=== PATIENT | female | born 1985 | race Caucasian/White ===

== ENCOUNTER 2025-02-24 16:31 | Emergency (ER) | payer OTHER, SELFPAY ==
[2025-02-24 16:31] VITALS: BP 139/98; PULSE 80; RESP 17; TEMP 36.8; O2SAT 97; BMI 37.4
--- NOTE | 2025-02-24 16:35 | ECG_ITS ---
[facility] Test Date: 2025-02-24 Pat Name: Carol Urban Department: Room: Gender: Female [employer]: : 1985 Requested By: Carlene Morocho Order Number: [id number] Masood MD: Dixon Torres M.D. Measurements Intervals [place] Rate: 80 P: 51 FL: 213 QRS: 7 QRSD: 103 T: 55 QT: 382 QTc: 441 Interpretive Statements SINUS RHYTHM WITH FIRST DEGREE AV BLOCK No previous ECG available for comparison Electronically Signed On 02-24-2025 17:53:31 NEGATIVE TURNER by Dixon Torres M.D. [id number]
--- NOTE | 2025-02-24 16:53 | XRR_ITS ---
PROCEDURE INFORMATION: Exam: XR Chest Exam date and time: 02/24/2025 4:54 PM Age: 39 years old Clinical indication: Cough; Heart monitor; Additional info: Chest pain TECHNIQUE: Imaging protocol: Radiologic exam of the chest. Views: 1 view. COMPARISON: No relevant prior studies available. FINDINGS: Tubes, catheters and devices: Metallic devices project over the left upper thorax. Lungs: Unremarkable. No consolidation. Pleural spaces: Unremarkable. No pleural effusion. No pneumothorax. Heart/Mediastinum: Cardiac silhouette is enlarged. Bones/joints: Unremarkable. XR/XR chest 1V portable [id number] IMPRESSION: No acute cardiopulmonary findings.
--- NOTE | 2025-02-24 16:53 | ED_ITS ---
HPI - Arrhythmia/Palpitations 2 General: Chief Complaint: Arrhythmia/Palpitations Stated Complaint: weakness - low hr Time Seen by Provider: 02/24/25 16:32 Source: patient Mode of arrival: ambulatory Limitations: no limitations History of Present Illness: Patient is a 39-year-old female presents to ED today with a complaint of episodes of bradycardia. Patient states she first began noticing earlier while she would be asleep. She wears some type of aura ring that alerts her to abnormal heart rates/sleep patterns. She had began noticing that her heart rates were in the mid 30s when she would sleep. She has since reached out to her primary care provider who ordered her Holter monitor and she is currently wearing this. Patient has complaints of fatigue. She is having insomnia and has been prescribed medications such as trazodone and hydroxyzine to help with her sleep. She states she has a difficult time falling asleep. She does admit to awakening several times for frequent urination. She has tried decreasing fluids prior to bedtime. No caffeine past noon. These have not helped with her symptoms. She states she overall feels absolutely exhausted all the time. She will occasionally notice some intermittent palpitations in her chest. She states normally the bradycardia is happening at night but she has started noticing it during the day-like this morning for example. She denies lightheadedness, dizziness, passing out episodes. No shortness of breath. Heart rate is sinus rhythm with a rate of 80 upon arrival. Denies possibility of perimenopausal symptoms as she still has regular menstrual cycles. States she does have known thyroid disease and is on medication for this. Known history of mitral valve prolapse. MD complaint: palpitations Onset (ago): month(s) Duration: intermittent Severity: moderate Associated symptoms: Deny nausea, pre-syncope, syncope or vomiting Related Data Home Medications ?Medication ?Instructions ?Recorded ?Confirmed aspirin 325 mg tablet (Abel 325 mg PO DAILY 02/24/25 02/24/25 Aspirin) levothyroxine 50 mcg tablet 50 mcg PO DAILY 02/24/25 1 04/26/24 liothyronine 5 mcg tablet 5 mcg PO QAM 02/24/25 omega-3 fatty acids-fish oil 684 1 cap PO DAILY 02/24/25 mg-1,200 mg capsule,delayed release vitamin D3 125 mcg (5,000 1 cap PO DAILY 02/24/2501/30 unit)-vitamin K2 100 mcg capsule Allergies Allergy/AdvReac Type Severity Reaction Status Date / Time No Known Allergies Allergy Verified 02/24/25 16:34 Review of Systems 2 Const: Reports: change in weight, fatigue and change in sleep pattern; Denies: fever(s), chills, body aches or malaise Eyes: Denies: change in vision, blurry vision or photophobia Card: Reports: palpitations; Denies: chest pain, irregular heart rhythm, edema, swelling of feet/ankles, lightheadedness, syncope, pre-syncope, dyspnea on exertion, orthopnea, leg pain with exertion or acrocyanosis Resp: Denies: dyspnea, productive cough, non-productive cough, wheezing, pain on inspiration or chest congestion GI: Denies: abdominal pain, nausea, vomiting, heartburn or diarrhea : Reports: urinary frequency; Denies: flank pain, difficulty voiding, dysuria, urinary urgency or urinary hesitancy Musc: Denies: neck pain, back pain, extremity pain, extremity swelling or joint pain Skin/Breast: Denies: rash Neuro: Denies: headache(s), numbness in extremities, weakness in extremities, sensory changes or dizziness Physical Exam 2 Const: COMMON NORMALS: no acute distress, patient oriented x3, no limitations, alert and well nourished GENERAL APPEARANCE: cooperative NUTRITIONAL APPEARANCE: obese (BMI 37.4) ORIENTATION/CONSCIOUSNESS: Yes awake, Yes oriented to person, Yes oriented to place and Yes oriented to time HENMT: COMMON NORMALS: normocephalic and atraumatic HEAD & SCALP: normal to inspection, normocephalic and atraumatic FACE & SINUS: normal facial exam Eye: COMMON NORMALS: no scleral icterus Neck/C-Spine: COMMON NORMALS: full ROM, no lymphadenopathy, supple and no meningeal signs Chest: COMMONS NORMALS: normal inspection of the chest Resp: COMMON NORMALS: normal respiratory effort and clear to auscultation bilaterally AUSCULTATION: clear to auscultation bilaterally Cardio: COMMON NORMALS: regular rate and regular rhythm RATE: regular rate RHYTHM: regular rhythm GI: COMMON NORMALS: Normal to inspection, nondistended, normoactive bowel sounds present, Soft to palpation, non-tender, No hepatosplenomegaly present and no masses PALPATION: Yes Soft to palpation and Yes No hepatosplenomegaly present : COMMON NORMALS: Yes no CVA tenderness BLADDER/KIDNEY EXAM: Yes no CVA tenderness Back/Pelvis: COMMON NORMALS: no CVA tenderness and thoracic and lumbar spine normal to inspection Extremity: COMMON NORMALS: normal to inspection, capillary refill normal, no clubbing, cyanosis or edema, no calf tenderness and no pedal edema GENERAL: Y es normal exam except as noted Neuro: CRYSTAL COMA SCALE: document GCS findings Delta coma scale eye opening: Spontaneous Delta coma scale verbal response: Orientated Crystal coma scale motor response: Obey commands Cyrstal coma scale total score: 15 COMMON NORMALS: patient oriented x3, moves all extremities, no focal motor deficits, no sensory deficits noted and gait normal SENSORIUM/ORIENTATION: Yes alert, Yes oriented to person, Yes oriented to place and Yes oriented to time MENINGEAL SIGNS: Yes no meningeal signs Skin: COMMON NORMALS: no rashes or lesions noted GENERAL SKIN EXAM: no rashes or lesions noted Course 2 Vital Signs: Vital signs: Vital Signs Temperature 98.2 F 02/24/25 16:31 Pulse Rate 86 02/24/25 18:13 Respiratory Rate 17 02/24/25 16:31 Blood Pressure 126/87 02/24/25 18:13 Pulse Oximetry 99 02/24/25 18:13 Oxygen Delivery Me thod Room Air 02/24/25 16:31 MDM - Arrhythmia/Palpitations Medical Decision Making Patient clinically appears in no acute distress. She has not had any episodes of bradycardia while here. She has been noted on the monitor a few times to have runs of ventricular bigeminy. Question whether her aura watch is getting an accurate reading when it is telling her she is having bradycardia or if it is just misinterpreting rhythm. Ultimately she is wearing a Holter monitor (2 week monitor) which should give PCP useful information to determine course/plan. From an emergency standpoint she can go-return to ED precautions discussed. Medical Records I reviewed the patient's medical records. Lab Data I reviewed the patient's lab results. 02/24/25 15:55 02/24/25 15:55 Radiology Impressions Chest X-Ray 02/24/25 16:53 IMPRESSION: No acute cardiopulmonary findings. Laboratory Results WBC 7.48 10^3/uL (3.29-11.43) 11/27/25 15:55 RBC 5.01 10^6/uL (3.85-5.65) 02/24/25 15:55 Hgb 14.00 g/dL (11.27-16.99) 02/24/25 15:55 Hct 42.5 % (36-47) 02/24/25 15:55 MCV 84.8 fl (85-98) L 02/24/25 15:55 MCH 27.9 pg (27-33) 02/24/25 15:55 MCHC 32.9 g/dL (30-55) 02/24/25 15:55 RDW 12.8 % (12.1-15.1) 02/24/25 15:55 Plt Count 303 10^3/cmm (157-399) 02/24/25 15:55 MPV 10.3 fL (7.4-10.4) 02/24/25 15:55 Neut % (Auto) 63.4 % 02/24/25 15:55 Lymph % (Auto) 29.5 % 02/24/25 15:55 Forrest % (Auto) 5.5 % 02/24/25 15:55 Eos % (Auto) 0.8 % 02/24/25 15:55 Baso % (Auto) 0.5 % 02/24/25 15:55 Neut # (Auto) 4.74 10^3/uL (1.8-7.7) 02/24/25 15:55 Lymph # (Auto) 2.2 10^3/uL (0.8-4.8) 02/24/25 15:55 Forrest # (Auto) 0.4 10^3/uL (0.2-0.9) 02/24/25 15:55 Eos # (Auto) 0.1 10^3/uL (0.0-0.8) 02/24/25 15:55 Baso # (Auto) 0.0 10^3/uL (0.0-0.1) 02/24/25 15:55 Nucleated RBC % (auto) 0 % 02/24/25 15:55 Nucleated RBCs # 0.0 /100WBC 02/24/25 15:55 Sodium 139 mmol/L (136-145) 02/24/25 15:55 Potassium 3.7 mmol/L (3.5-5.1) 02/24/25 15:55 Chloride 101 mmol/L (98-107) 02/24/25 15:55 Carbon Dioxide 27 mmol/L (22-29) 02/24/25 15:55 Anion Gap 14.7 (5-19) 02/24/25 15:55 BUN 10 mg/dL (6-20) 02/24/25 15:55 Creatinine 0.7 mg/dL (0.5-0.9) 02/24/25 15:55 GFR Calculation 92.7 mL/min (90-130) 02/24/25 15:55 Glucose 87 mg/dL (65-115) 02/24/25 15:55 Estimat Average Glucose 103 02/24/25 15:55 Hemoglobin A1c 5.2 % (4.0-6.0) 02/24/25 15:55 Calculated Osmolality 286 mOsm/kg (285-295) 02/24/25 15:55 Calcium 9.6 mg/dL (8.5-10.5) 02/24/25 15:55 Total Bilirubin 0.4 mg/dL (0.15-1.2) 02/24/25 15:55 AST 19 U/L (0-32) 02/24/25 15:55 ALT 10 U/L (0-33) 02/24/25 15:55 Alkaline Phosphatase 120 U/L (35-105) H 02/24/25 15:55 NT-Pro-B Natriuret Pep 267 pg/mL (0-125) H 02/24/25 15:55 Total Protein 7.8 g/dL (6.6-8.7) 02/24/25 15:55 Albumin 4.4 g/dL (3.5-5.2) 02/24/25 15:55 Globulin 3.4 g/dL (1.3-4.6) 02/24/25 15:55 TSH 2.99 uIU/mL (0.27-4.20) 02/24/25 15:55 Urine Color Yellow (Yellow) 02/24/25 17:10 Urine Appearance Clear (CLEAR) 02/24/25 17:10 Urine pH 6.0 (5-7) 02/24/25 17:10 Ur Specific [place] 1.011 (1.005-1.030) 02/24/25 17:10 Urine Protein Negative (Negative) 02/24/25 17:10 Urine Glucose (UA) Negative (Normal) 02/24/25 17:10 Urine Ketones 1+ (Negative) H 02/24/25 17:10 Urine Blood 1+ (Negative) A 02/24/25 17:10 Urine Nitrate Negative (Negative) 02/24/25 17:10 Urine Bilirubin Negative (Negative) 02/24/25 17:10 Urine Urobilinogen 0.2 mg/dL (Negative) 02/24/25 17:10 Ur Leukocyte Esterase Negative (Negative) 02/24/25 17:10 Urine RBC 0-2 /hpf (0-2) 02/24/25 17:10 Urine WBC 0-5 /hpf (0-5) 02/24/25 17:10 Ur Squamous Epith Cells 0-5 /hpf (0-5) 02/24/25 17:10 Amorphous Sediment Not Reportable 02/24/25 17:10 Urine Bacteria 1+ /hpf (NONE) H 02/24/25 17:10 Hyaline Casts 0.40 /lpf 02/24/25 17:10 All radiology interpretation(s) finalized by discharge Discharge Plan Discharge Patient Disposition: Home Clinical Impression: Palpitations Condition: Stable Prescriptions: No Action aspirin [Abel Aspirin] 325 mg Tablet 325 mg PO DAILY liothyronine 5 mcg tablet 5 mcg PO QAM levothyroxine 50 mcg tablet 50 mcg PO DAILY White 3 Fish Oil 684-1,200 mg Capsule,Delayed Release(Dr/Ec) 1 cap PO DAILY vitamin D3-vitamin K2 125 mcg (5,000 unit)-100 mcg Capsule 1 cap PO DAILY Discharge Orders: Discharge ED (Routine); Ordered 02/24/25 Ordered By: Cralene Morocho Patient Instructions: Patient Portal & Yassine Instructions Activity Restrictions/Additional Instructions: As we discussed, continue plan to follow-up with primary care following your Holter monitor. I suspect you eventually will be referred to cardiology for further evaluation/treatment depending on Holter monitor results. You may return to the emergency department at any time for onset of chest pain, shortness of breath, difficulty breathing, lightheadedness/dizziness/passing out episodes. 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
[2025-02-24 17:14] LABS: Hematocrit 42.5 % (36-47); Hemoglobin 14.00 g/dL (11.27-16.99); Mean Corpuscular HGB Conc 32.9 g/dL (30-55); Mean Corpuscular Hemoglobin 27.9 pg (27-33); Mean Corpuscular Volume 84.8 fl (85-98); Nucleated Red Blood Cells % 0 %; Platelet Count 303 10^3/cmm (157-399); Red Blood Count 5.01 10^6/uL (3.85-5.65); White Blood Count 7.48 10^3/uL (3.29-11.43)
[2025-02-24 17:21] LABS: Glucose Urine UA Negative (Normal); Nitrate Urine Negative (Negative); Specific Gravity, Urine 1.011 (1.005-1.030)
[2025-02-24 17:26] LABS: Add Urine Microscopic? YES
[2025-02-24 17:31] LABS: Estmated Average Glucose 103; Hemoglobin A1C 5.2 % (4.0-6.0)
[2025-02-24 17:40] LABS: Alanine Aminotransferase 10 U/L (0-33); Albumin Level 4.4 g/dL (3.5-5.2); Alkaline Phosphatase 120 U/L (35-105); Anion Gap 14.7 (5-19); Aspartate Amino Transferase 19 U/L (0-32); Blood Urea Nitrogen 10 mg/dL (6-20); Calcium 9.6 mg/dL (8.5-10.5); Carbon Dioxide 27 mmol/L (22-29); Chloride 101 mmol/L (98-107); Globulin 3.4 g/dL (1.3-4.6); Glucose 87 mg/dL (65-115); NT Pro B Type Natriuretic Pept 267 pg/mL (0-125); Osmolality Calculated 286 mOsm/kg (285-295); Potassium 3.7 mmol/L (3.5-5.1); Sodium 139 mmol/L (136-145); Thyroid Stimulating Hormone 2.99 uIU/mL (0.27-4.20); Total Protein 7.8 g/dL (6.6-8.7)
[2025-02-24 17:56] VITALS: BP 120/71; PULSE 86; O2SAT 98
[2025-02-24 18:13] VITALS: BP 126/87; PULSE 86; O2SAT 99
== END 2025-02-24 18:14 | disposition home or self-care (01) ==
PROVIDERS: Emergency Provider Physician Assistant; PCP Internal Medicine
DX: R00.2 Palpitations (principal); Z79.82 Long term (current) use of aspirin
CPT/HCPCS: 71045; 80053; 81001; 83036; 83880; 84443; 85025; 93005; 99285